=== PATIENT | female | born 1955 | race African-American/Black ===

== ENCOUNTER 2017-10-26 12:11 | Inpatient (IN) | payer OTHER ==
[2017-10-26 14:31] VITALS: BMI 39.9
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
[2017-10-26] MEDS ORDERED: IBUPROFEN 400 MG TABLET (FP) PO PRN (15:15)
[2017-10-26] MEDS ORDERED: LOPERAMIDE HCL 2 MG CAPSULE PO PRN (15:15)
[2017-10-26] MEDS ORDERED: MAG HYDROX/AL HYDROX/SIMETH 30 ML UNIT-DOSE CUP PO PRN (15:15)
[2017-10-26] MEDS ORDERED: P-EPHED 60MG/TRIPROLIDI 2.5MG TABLET PO PRN (15:15)
[2017-10-26] MEDS ORDERED: hydrOXYzine PAMOATE 50 MG CAPSULE (FP) PO PRN (15:15)
[2017-10-26] MEDS ORDERED: MENTHOL/PHENOL 1 EACH UD MM PRN (15:15)
[2017-10-26] MEDS ORDERED: guaiFENesin/D-METHORPHAN HB 10 ML UNIT-DOSE CUPS PO PRN (15:15)
[2017-10-26] MEDS ORDERED: MAGNESIUM CITRATE 300 ML BOTTLE PO PRN (15:15)
[2017-10-26] MEDS ORDERED: MAGNESIUM HYDROX 2400MG/30ML ORAL SUSPENSION 30 ML CUP PO PRN (15:15)
[2017-10-26] MEDS ORDERED: ACETAMINOPHEN 325 MG TABLET (FP) PO PRN (15:15)
[2017-10-26] MEDS ORDERED: diazePAM 5 MG TABLET PO PRN (15:15)
[2017-10-26] MEDS ORDERED: METHADONE HCL 10 MG TABLET PO SCH (15:30)
[2017-10-26] MEDS ORDERED: diazePAM 5 MG TABLET PO ONE (15:35)
[2017-10-26] MEDS ORDERED: METHADONE HCL 10 MG TABLET ONE (15:39)
[2017-10-26] MEDS ORDERED: METHADONE HCL 40 MG DISPERSABLE TABLET ONE (15:39)
[2017-10-26] MEDS: METHADONE 120 MG, METHADONE 10 MG PO SCH (15:56)
[2017-10-26] MEDS: amLODIPine BESYLATE 10 MG TABLET (FP) PO SCH (15:56)
--- NOTE | 2017-10-26 17:26 | CONSULT ---
[facility] Psychiatric Consult - Data Date of interview: 10/26/17 Admission source: [facility] Identifying data: Pt. is a 61 year old female, single, mother of three, disabled , receiving SSI, and living with her girlfriend. [facility]. Pt. admitted to for opiate and benzodiazepine dependence. Substance Abuse History: Following information confirmed with Ms. Toure: - Smoking Cessation. Smoking history: Current every day smoker. Have you smoked in the past 12 months: Yes. Aproximately how many cigarettes per day: 20. Hx Chewing Tobacco Use: No. Initiated information on smoking cessation: Yes. ' Breaking Loose' booklet given: 10/26/17. - Substance & Tx. History. Hx Alcohol Use: No. Hx Substance Use: Yes. Substance Use Type: Tranquilizers. - Substances Abused. Alprazolam (Xanax). Route: Oral. Frequency: Daily. Amount used: 6mg. Age of first use: 58. Date of Last Use: 10/26/17. Heroin. Route: Inhalation. Frequency: Daily. Amount used: 3 bags. Age of first use: 23. Date of Last Use: 10/25/17 Medical History: hypertension, Hypercholesterolemia Psychiatric History: Pt. reports two psychiatric hospitalizations, most recently last week at [facility]. Pt. reports a diagnosis of depression and anxiety. Pt. denies outpatient care. Most recent OPD was approximatly 2 years ago. Pt. reports a h/o accepting ambien and seroquel 300mg. Pt. reports one suicide attempt two years ago via overdose. Pt. currently denies suicidal and homicidal ideation. Physical/Sexual Abuse/Trauma History: Denies. Mental Status Exam - Mental Status Exam Alert and Oriented to: Time, Place, Person Cognitive Function: Good Patient Appearance: Unkempt Mood: Sad, Euthymic Affect: Mood Congruent Patient Behavior: Cooperative Speech Pattern: Clear, Delayed Voice Loudness: Moderately Soft/Quiet Thought Process: Goal Oriented Thought Disorder: Not Present Hallucinations: Denies Suicidal Ideation: Denies Homicidal Ideation: Denies Insight/Judgement: Poor Sleep: Poorly Appetite: Fair Muscle strength/Tone: Normal Gait/Station: Normal Psychiatric Findings - Problem List ([place] 1, 2,3) (1) Substance induced mood disorder Current Visit: Yes Status: Acute (2) Methadone maintenance therapy patient Current Visit: Yes Status: Acute (3) Nicotine dependence Current Visit: Yes Status: Acute (4) Uncomplicated sedative, hypnotic or anxiolytic withdrawal Current Visit: Yes Status: Acute - Initial Treatment Plan Initial Treatment Plan: Psychoeducation provided. Detoxification. Seroquel 50mg qhs ordered. Benefits and side effects discussed. Verbal consent given. Will continue to monitor.
[2017-10-26] MEDS: NICOTINE 21 MG/24 HOURS TOPICAL PATCH TD SCH (17:37)
[2017-10-26] MEDS ORDERED: MELATONIN 5 MG TABLETS PO PRN (22:00)
[2017-10-26 22:14] LABS: URINE APPEARANCE CLEAR; URINE BILIRUBIN NEGATIVE (<2.0 mg/dL); URINE BLOOD NEGATIVE (NEGATIVE); URINE COLOR LTYELLOW; URINE GLUCOSE (UA) NEGATIVE (NEGATIVE); URINE KETONE NEGATIVE (NEGATIVE); URINE NITRITE NEGATIVE (NEGATIVE); URINE PROTEIN NEGATIVE (NEGATIVE); URINE UROBILINOGEN NEGATIVE mg/dL (0.2-1.0)
[2017-10-26 22:15] LABS: URINE LEUK ESTERASE 3+ (NEGATIVE)
[2017-10-26] MEDS: ATORVASTATIN CA 10 MG TABLET (FP) PO SCH (22:24)
[2017-10-26] MEDS: cloNIDine HCL 0.1 MG TABLET PO SCH (22:24)
[2017-10-26] MEDS: QUEtiapine FUMARATE 50 MG TABLET PO SCH (22:24)
[2017-10-26] MEDS: diazePAM 5 MG TABLET PO SCH (22:24)
[2017-10-26] MEDS: THIAMINE HCL 100 MG TABLET (FP) PO SCH (22:24)
[2017-10-26 22:39] LABS: EPI CELLS RARE /HPF (FEW); URINE BACTERIA FEW /hpf (NONE SEEN); URINE HYALINE CAST 1 /lpf; URINE MUCUS RARE
[2017-10-27] MEDS ORDERED: METHADONE HCL 40 MG DISPERSABLE TABLET ONE (04:16)
[2017-10-27] MEDS ORDERED: METHADONE HCL 10 MG TABLET ONE (04:16)
[2017-10-27] MEDS: diazePAM 5 MG TABLET PO SCH ×3 (05:54→22:20)
[2017-10-27] MEDS: METHADONE 120 MG, METHADONE 10 MG PO SCH (05:54)
[2017-10-27 10:00] LABS: HEMATOCRIT 36.9 % (32.4-45.2); HEMOGLOBIN 11.9 GM/dL (10.7-15.3); MCH 27.4 pg (25.7-33.7); MCHC 32.2 g/dl (32.0-36.0); MEAN CELL VOLUME 85.4 fl (80-96); MEAN PLT VOLUME 9.9 fl (7.5-11.1); PLATELET COUNT 146 K/MM3 (134-434); RBC 4.32 M/mm3 (3.60-5.2); RDW 15.7 % (11.6-15.6); WHITE BLOOD COUNT 7.1 K/mm3 (4.0-10.0)
[2017-10-27 10:25] LABS: CHLORIDE 103 mmol/L (98-107); POTASSIUM 3.8 mmol/L (3.5-5.1); SODIUM 140 mmol/L (136-145)
[2017-10-27 10:31] LABS: ALK PHOS 254 U/L (45-117); ANION GAP 6 (8-16); BILIRUBIN,TOTAL 0.1 mg/dL (0.2-1.0); BLOOD UREA NITROGEN 19 mg/dL (7-18); CALCIUM 8.7 mg/dL (8.5-10.1); CO2 31 mmol/L (21-32); GLUCOSE,RANDOM 113 mg/dL (74-106); SGOT/AST 36 U/L (15-37); SGPT/ALT 34 U/L (12-78); TOT PROT 6.7 g/dl (6.4-8.2)
[2017-10-27] MEDS: amLODIPine BESYLATE 10 MG TABLET (FP) PO SCH (10:42)
[2017-10-27] MEDS: cloNIDine HCL 0.1 MG TABLET PO SCH ×2 (10:42→22:19)
[2017-10-27] MEDS: PRENATAL VITAMINS W/ FOLIC ACID TABLET (FP) PO SCH (10:42)
[2017-10-27] MEDS: NICOTINE 21 MG/24 HOURS TOPICAL PATCH TD SCH (10:43)
--- NOTE | 2017-10-27 13:14 | PN ---
S CIWA - CIWA Score Nausea/Vomitin-Mild Nausea/No Vomiting Muscle Tremors: 4-Moderate,w/Arms Extend Anxiety: 4-Mod. Anxious/Guarded Agitation: 4-Moderately Restless Paroxysmal Sweats: 1-Minimal Palms Moist Orientation: 0-Oriented Tacttile Disturbances: 1-Very Mild Itch/Numbness Auditory Disturbances: 0-None Visual Disturbances: 1-Very Mild Sensitivity Headache: 2-Mild CIWA-Ar Total Score: 18 BHS Progress Note (SOAP) Subjective: sweat tremor sensitive to light trouble sleeping anxiety Objective: 10/27/17 13:12 Vital Signs Temperature 97.7 F 10/27/17 10:27 Pulse Rate 61 10/27/17 10:27 Respiratory Rate 18 10/27/17 10:27 Blood Pressure 148/91 10/27/17 10:27 O2 Sat by Pulse Oximetry (%) Laboratory Last Values WBC 7.1 K/mm3 (4.0-10.0) 10/27/17 07:00 RBC 4.32 M/mm3 (3.60-5.2) 10/27/17 07:00 Hgb 11.9 GM/dL (10.7-15.3) 10/27/17 07:00 Hct 36.9 % (32.4-45.2) 10/27/17 07:00 MCV 85.4 fl (80-96) 10/27/17 07:00 MCH 27.4 pg (25.7-33.7) 10/27/17 07:00 MCHC 32.2 g/dl (32.0-36.0) 10/27/17 07:00 RDW 15.7 % (11.6-15.6) H 10/27/17 07:00 Plt Count 146 K/MM3 (134-434) 10/27/17 07:00 MPV 9.9 fl (7.5-11.1) 10/27/17 07:00 Sodium 140 mmol/L (136-145) 10/27/17 07:00 Potassium 3.8 mmol/L (3.5-5.1) 10/27/17 07:00 Chloride 103 mmol/L (98-107) 10/27/17 07:00 Carbon Dioxide 31 mmol/L (21-32) 10/27/17 07:00 Anion Gap 6 (8-16) L 10/27/17 07:00 BUN 19 mg/dL (7-18) H 10/27/17 07:00 Creatinine 1.0 mg/dL (0.55-1.02) 10/27/17 07:00 Creat Clearance w eGFR 56.75 (>60) 10/27/17 07:00 Random Glucose 113 mg/dL (74-106) H 10/27/17 07:00 Calcium 8.7 mg/dL (8.5-10.1) 10/27/17 07:00 Total Bilirubin 0.1 mg/dL (0.2-1.0) L 10/27/17 07:00 AST 36 U/L (15-37) 10/27/17 07:00 ALT 34 U/L (12-78) 10/27/17 07:00 Alkaline Phosphatase 254 U/L (45-117) H 10/27/17 07:00 Total Protein 6.7 g/dl (6.4-8.2) 10/27/17 07:00 Albumin 3.0 g/dl (3.4-5.0) L 10/27/17 07:00 Urine Color Ltyellow 10/26/17 17:35 Urine Appearance Clear 10/26/17 17:35 Urine pH 6.0 (5.0-8.0) 10/26/17 17:35 Ur Specific [place] 1.011 (1.001-1.035) 10/26/17 17:35 Urine Protein Negative (NEGATIVE) 10/26/17 17:35 Urine Glucose (UA) Negative (NEGATIVE) 10/26/17 17:35 Urine Ketones Negative (NEGATIVE) 10/26/17 17:35 Urine Blood Negative (NEGATIVE) 10/26/17 17:35 Urine Nitrite Negative (NEGATIVE) 10/26/17 17:35 Urine Bilirubin Negative (<2.0 mg/dL) 10/26/17 17:35 Urine Urobilinogen Negative mg/dL (0.2-1.0) 10/26/17 17:35 Ur Leukocyte Esterase 3+ (NEGATIVE) H 10/26/17 17:35 Urine WBC (Auto) 1 /hpf (3-5) 10/26/17 17:35 Urine RBC (Auto) 3 /hpf (0-3) 10/26/17 17:35 Ur Epithelial Cells Rare /HPF (FEW) 10/26/17 17:35 Urine Bacteria Few /hpf (NONE SEEN) 10/26/17 17:35 Hyaline Casts 1 /lpf 10/26/17 17:35 Urine Mucus Rare 10/26/17 17:35 lab noted 10/27/17 13:13 increae oral fluid Assessment: 10/27/17 13:14 withdrawal sx Plan: continue detox
--- NOTE | 2017-10-27 13:32 | EKG ---
Test Reason : Blood Pressure : / mmHG Vent. Rate : 069 BPM Atrial Rate : 069 BPM P-R Int : 194 ms QRS Dur : 092 ms QT Int : 436 ms P-R-T Axes : 012 -31 001 degrees QTc Int : 467 ms SINUS RHYTHM WITH PREMATURE SUPRAVENTRICULAR COMPLEXES LEFT AXIS DEVIATION MODERATE VOLTAGE CRITERIA FOR LVH, MAY BE NORMAL VARIANT ABNORMAL ECG NO PREVIOUS ECGS AVAILABLE Confirmed by GIANNI APARICIO MD ([id number]) on 10/27/2017 1:31:43 PM Referred By: Confirmed By:GIANNI APARICIO MD
[2017-10-27] MEDS: ATORVASTATIN CA 10 MG TABLET (FP) PO SCH (22:20)
[2017-10-27] MEDS: THIAMINE HCL 100 MG TABLET (FP) PO SCH (22:20)
[2017-10-27] MEDS: QUEtiapine FUMARATE 50 MG TABLET PO SCH (22:20)
[2017-10-28] MEDS ORDERED: METHADONE HCL 40 MG DISPERSABLE TABLET ONE (04:43)
[2017-10-28] MEDS ORDERED: METHADONE HCL 10 MG TABLET ONE (04:44)
[2017-10-28] MEDS: METHADONE 120 MG, METHADONE 10 MG PO SCH (06:02)
[2017-10-28] MEDS: PRENATAL VITAMINS W/ FOLIC ACID TABLET (FP) PO SCH (10:34)
[2017-10-28] MEDS: amLODIPine BESYLATE 10 MG TABLET (FP) PO SCH (10:34)
[2017-10-28] MEDS: cloNIDine HCL 0.1 MG TABLET PO SCH (10:34)
[2017-10-28] MEDS: diazePAM 5 MG TABLET PO SCH ×2 (10:34→22:31)
[2017-10-28] MEDS: NICOTINE 21 MG/24 HOURS TOPICAL PATCH TD SCH (10:36)
[2017-10-28] MEDS ORDERED: cloNIDine HCL 0.1 MG TABLET PO SCH (10:39)
--- NOTE | 2017-10-28 10:42 | PN ---
S CIWA - CIWA Score Nausea/Vomitin Muscle Tremors: 3 Anxiety: 3 Agitation: 3 Paroxysmal Sweats: 1-Minimal Palms Moist Orientation: 0-Oriented Tacttile Disturbances: 0-None Auditory Disturbances: 0-None Visual Disturbances: 0-None Headache: 0-None Present CIWA-Ar Total Score: 13 S Progress Note (SOAP) Subjective: nausea, sweats,, interrutped sleep, anxiety, tremor Objective: 10/28/17 10:41 Vital Signs - 24 hr 10/27/17 10/27/17 10/27/17 15:12 18:49 22:08 Temperature 98.4 F 98.4 F 98.2 F Pulse Rate 56 L 63 62 Respiratory 18 18 18 Rate Blood Pressure 112/67 116/75 143/90 10/28/17 10/28/17 10/28/17 00:30 03:30 06:00 Temperature 97.3 F L Pulse Rate 58 L Respiratory 18 17 18 Rate Blood Pressure 139/71 10/28/17 10:14 Temperature 96.8 F L Pulse Rate 50 L Respiratory 16 Rate Blood Pressure 141/73 Laboratory Tests 10/26/17 10/27/17 10/27/17 17:35 07:00 07:00 WBC 7.1 RBC 4.32 Hgb 11.9 Hct 36.9 MCV 85.4 MCH 27.4 MCHC 32.2 RDW 15.7 H Plt Count 146 MPV 9.9 Sodium 140 Potassium 3.8 Chloride 103 Carbon Dioxide 31 Anion Gap 6 L BUN 19 H Creatinine 1.0 Creat Clearance w eGFR 56.75 Random Glucose 113 H Calcium 8.7 Total Bilirubin 0.1 L AST 36 ALT 34 Alkaline Phosphatase 254 H Total Protein 6.7 Albumin 3.0 L Urine Color Ltyellow Urine Appearance Clear Urine pH 6.0 Ur Specific [place] 1.011 Urine Protein Negative Urine Glucose (UA) Negative Urine Ketones Negative Urine Blood Negative Urine Nitrite Negative Urine Bilirubin Negative Urine Urobilinogen Negative Ur Leukocyte Esterase 3+ H Urine WBC (Auto) 1 Urine RBC (Auto) 3 Ur Epithelial Cells Rare Urine Bacteria Few Hyaline Casts 1 Urine Mucus Rare RPR Titer 10/27/17 07:00 WBC RBC Hgb Hct MCV MCH MCHC RDW Plt Count MPV Sodium Potassium Chloride Carbon Dioxide Anion Gap BUN Creatinine Creat Clearance w eGFR Random Glucose Calcium Total Bilirubin AST ALT Alkaline Phosphatase Total Protein Albumin Urine Color Urine Appearance Urine pH Ur Specific [place] Urine Protein Urine Glucose (UA) Urine Ketones Urine Blood Urine Nitrite Urine Bilirubin Urine Urobilinogen Ur Leukocyte Esterase Urine WBC (Auto) Urine RBC (Auto) Ur Epithelial Cells Urine Bacteria Hyaline Casts Urine Mucus RPR Titer Nonreactive Assessment: 10/28/17 10:41 [place] sx, cont detox, d/c clonidine, start chlorthalidone 25mg daiy for bp control
[2017-10-28] MEDS: ATORVASTATIN CA 10 MG TABLET (FP) PO SCH (22:31)
[2017-10-28] MEDS: QUEtiapine FUMARATE 50 MG TABLET PO SCH (22:31)
[2017-10-28] MEDS: THIAMINE HCL 100 MG TABLET (FP) PO SCH (22:31)
[2017-10-29] MEDS ORDERED: METHADONE HCL 10 MG TABLET ONE (05:13)
[2017-10-29] MEDS ORDERED: METHADONE HCL 40 MG DISPERSABLE TABLET ONE (05:13)
[2017-10-29] MEDS: METHADONE 120 MG, METHADONE 10 MG PO SCH (06:22)
[2017-10-29] MEDS: NICOTINE 21 MG/24 HOURS TOPICAL PATCH TD SCH (11:00)
[2017-10-29] MEDS: amLODIPine BESYLATE 10 MG TABLET (FP) PO SCH (11:00)
[2017-10-29] MEDS: diazePAM 5 MG TABLET PO SCH ×2 (11:00→22:29)
[2017-10-29] MEDS: CHLORTHALIDONE 25 MG TABLET PO SCH (11:00)
[2017-10-29] MEDS: PRENATAL VITAMINS W/ FOLIC ACID TABLET (FP) PO SCH (11:00)
--- NOTE | 2017-10-29 16:14 | PN ---
S Progress Note (SOAP) Subjective: ALERT,IRRITABLE,ANXIOUS,INTERRUPTED SLEEP,TREMOR Objective: 10/29/17 16:13 Vital Signs Temperature 97.7 F 10/29/17 16:02 Pulse Rate 71 10/29/17 16:02 Respiratory Rate 20 10/29/17 16:02 Blood Pressure 136/78 10/29/17 16:02 O2 Sat by Pulse Oximetry (%) Assessment: 10/29/17 16:13 WITHDRAWAL SYMPTOM Plan: CONTINUE DETOX,DISCHARGE IN AM
[2017-10-29] MEDS: QUEtiapine FUMARATE 50 MG TABLET PO SCH (22:29)
[2017-10-29] MEDS: ATORVASTATIN CA 10 MG TABLET (FP) PO SCH (22:29)
[2017-10-29] MEDS: THIAMINE HCL 100 MG TABLET (FP) PO SCH (22:29)
[2017-10-30] MEDS ORDERED: METHADONE HCL 40 MG DISPERSABLE TABLET ONE (04:21)
[2017-10-30] MEDS ORDERED: METHADONE HCL 10 MG TABLET ONE (04:21)
[2017-10-30] MEDS: METHADONE 120 MG, METHADONE 10 MG PO SCH (06:05)
[2017-10-30 07:05] VITALS: TEMP 97.5
[2017-10-30 07:22] VITALS: BP 139/85; PULSE 66
[2017-10-30] MEDS: PRENATAL VITAMINS W/ FOLIC ACID TABLET (FP) PO SCH (09:57)
[2017-10-30] MEDS: CHLORTHALIDONE 25 MG TABLET PO SCH (09:57)
[2017-10-30] MEDS: NICOTINE 21 MG/24 HOURS TOPICAL PATCH TD SCH (09:59)
[2017-10-30] MEDS: amLODIPine BESYLATE 10 MG TABLET (FP) PO SCH (09:59)
[2017-10-30] MEDS ORDERED: diazePAM 5 MG TABLET PO SCH (10:00)
--- NOTE | 2017-10-30 11:15 | DS ---
[facility] Detox Discharge Summary Admission Date: 10/26/17 Discharge Date: 10/30/17 - History Present History: Sedative Dependence Additional Comments: 61 years old female admitted for xanax detox completed xanax detox regimen tolerated well alert oriented x 3 no acute distress wants to go to [facility] for rehab health teaching hypertension and dietary regimen as well as weight loss - Physical Exam Results Vital Signs: Vital Signs Temperature 97.5 F L 10/30/17 07:05 Pulse Rate 66 10/30/17 07:21 Respiratory Rate 20 10/30/17 07:21 Blood Pressure 139/85 10/30/17 07:21 O2 Sat by Pulse Oximetry (%) Pertinent Admission Physical Exam Findings: withdrawal sx Vital Signs Temperature 97.5 F L 10/30/17 07:05 Pulse Rate 66 10/30/17 07:21 Respiratory Rate 20 10/30/17 07:21 Blood Pressure 139/85 10/30/17 07:21 O2 Sat by Pulse Oximetry (%) Laboratory Last Values WBC 7.1 K/mm3 (4.0-10.0) 10/27/17 07:00 RBC 4.32 M/mm3 (3.60-5.2) 10/27/17 07:00 Hgb 11.9 GM/dL (10.7-15.3) 10/27/17 07:00 Hct 36.9 % (32.4-45.2) 10/27/17 07:00 MCV 85.4 fl (80-96) 10/27/17 07:00 MCH 27.4 pg (25.7-33.7) 10/27/17 07:00 MCHC 32.2 g/dl (32.0-36.0) 10/27/17 07:00 RDW 15.7 % (11.6-15.6) H 10/27/17 07:00 Plt Count 146 K/MM3 (134-434) 10/27/17 07:00 MPV 9.9 fl (7.5-11.1) 10/27/17 07:00 Sodium 140 mmol/L (136-145) 10/27/17 07:00 Potassium 3.8 mmol/L (3.5-5.1) 10/27/17 07:00 Chloride 103 mmol/L (98-107) 10/27/17 07:00 Carbon Dioxide 31 mmol/L (21-32) 10/27/17 07:00 Anion Gap 6 (8-16) L 10/27/17 07:00 BUN 19 mg/dL (7-18) H 10/27/17 07:00 Creatinine 1.0 mg/dL (0.55-1.02) 10/27/17 07:00 Creat Clearance w eGFR 56.75 (>60) 10/27/17 07:00 Random Glucose 113 mg/dL (74-106) H 10/27/17 07:00 Calcium 8.7 mg/dL (8.5-10.1) 10/27/17 07:00 Total Bilirubin 0.1 mg/dL (0.2-1.0) L 10/27/17 07:00 AST 36 U/L (15-37) 10/27/17 07:00 ALT 34 U/L (12-78) 10/27/17 07:00 Alkaline Phosphatase 254 U/L (45-117) H 10/27/17 07:00 Total Protein 6.7 g/dl (6.4-8.2) 10/27/17 07:00 Albumin 3.0 g/dl (3.4-5.0) L 10/27/17 07:00 Urine Color Ltyellow 10/26/17 17:35 Urine Appearance Clear 10/26/17 17:35 Urine pH 6.0 (5.0-8.0) 10/26/17 17:35 Ur Specific [place] 1.011 (1.001-1.035) 10/26/17 17:35 Urine Protein Negative (NEGATIVE) 10/26/17 17:35 Urine Glucose (UA) Negative (NEGATIVE) 10/26/17 17:35 Urine Ketones Negative (NEGATIVE) 10/26/17 17:35 Urine Blood Negative (NEGATIVE) 10/26/17 17:35 Urine Nitrite Negative (NEGATIVE) 10/26/17 17:35 Urine Bilirubin Negative (<2.0 mg/dL) 10/26/17 17:35 Urine Urobilinogen Negative mg/dL (0.2-1.0) 10/26/17 17:35 Ur Leukocyte Esterase 3+ (NEGATIVE) H 10/26/17 17:35 Urine WBC (Auto) 1 /hpf (3-5) 10/26/17 17:35 Urine RBC (Auto) 3 /hpf (0-3) 10/26/17 17:35 Ur Epithelial Cells Rare /HPF (FEW) 10/26/17 17:35 Urine Bacteria Few /hpf (NONE SEEN) 10/26/17 17:35 Hyaline Casts 1 /lpf 10/26/17 17:35 Urine Mucus Rare 10/26/17 17:35 RPR Titer Nonreactive (NONREACTIVE) 10/27/17 07:00 lab noted - Treatment Hospital Course: Detox Protocol Followed, Detoxed Safely, Responded well, Discharged Condition Good, Rehab Referral Accepted Patient has Accepted a Rehab Referral to: [facility] - Medication Discharge Medications: Ambulatory Orders Clonidine HCl [Catapres] 0.3 mg PO BID 10/26/17 Amlodipine Besylate [Norvasc -] 10 mg PO DAILY #30 tablet 10/30/17 Atorvastatin Calcium [Lipitor] 10 mg PO HS #30 tablet 10/30/17 - Diagnosis (1) Essential hypertension Current Visit: Yes Status: Chronic (2) Hypercholesterolemia Current Visit: Yes Status: Chronic (3) Methadone maintenance therapy patient Current Visit: Yes Status: Chronic (4) Nicotine dependence Current Visit: Yes Status: Acute Qualifiers: Nicotine product type: cigarettes Substance use status: in withdrawal Qualified Code(s): F17.213 - Nicotine dependence, cigarettes, with withdrawal (5) Uncomplicated sedative, hypnotic or anxiolytic withdrawal Current Visit: Yes Status: Acute - AMA Did Patient Leave Against Medical Advice: No
== END 2017-10-30 11:44 | disposition home or self-care (01) | DRG 773 ==
LOC: YASAS 12:11 → Y6N 15:11
PROVIDERS: ADMIT Internal Medicine; ATTEND Internal Medicine
PROC: HZ2ZZZZ Detoxification Services for Substance Abuse Treatment (ICD-10-PCS; principal; 2017-10-26)
DX: F11.20 Opioid dependence, uncomplicated (principal); F10.230 Alcohol dependence with withdrawal, uncomplicated; F17.210 Nicotine dependence, cigarettes, uncomplicated; F19.24 Other psychoactive substance dependence with psychoactive substance-induced mood disorder; F41.9 Anxiety disorder, unspecified; F32.9 Major depressive disorder, single episode, unspecified; I10 Essential (primary) hypertension; E78.00 Pure hypercholesterolemia, unspecified; R63.4 Abnormal weight loss; Z68.39 Body mass index [BMI] 39.0-39.9, adult
CPT/HCPCS: 36415; 80053; 81003; 81015; 85027; 86593; 93005; 93010; J0735